=== PATIENT | female | born 1980 | race Caucasian/White ===

== ENCOUNTER 2016-12-13 02:00 | Inpatient (IN) | payer OTHER ==
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
--- NOTE | ~2016-12-13 | PN ---
Unit #: [id number] #: [id number] Patient: JORDAN MARTINI [id number] [facility] [address] [place] [address] [id number] MR#: [id number] NAME: JORDAN MARTINI ROOM: 86 Age: 36 Sex: F Admission Date: 12/13/2016 : 1980 Attending Physician: Nico Carr M.D. Admitting Physician: Nico Carr M.D. Primary Care Physician: Primary Care Physician Sharona DORSEY NOTES DATE OF SERVICE 12/17/2016 DISCUSSION Ms. Martini is a 36-year-old white female with substance abuse and mood disorder who was seen today and chart was reviewed and case was discussed with the staff. She was laying in her bed and was unable to get up and talk to me about symptoms, but was seen to be irritable stating that she wants to know why she is being held at this point and showed very poor insight in her situation and poor motivation towards treatment rather remains with poor prognosis. MENTAL STATUS EXAMINATION Young white female was casually dressed with fair personal hygiene, appears to be in no acute distress or discomfort. She was awake and alert on interaction with intact orientation. Her mood was anxious with congruent affect. She denies any suicidal or homicidal ideations. Her insight and judgement remains slightly impaired. TREATMENT PLAN 1. We will continue her on her current medications and detox protocol. We will monitor her response to the medication and make further adjustments as needed. 2. We will continue to follow up. Dictated by... Lex Carrington/marck TD: 12/17/2016 23:38 JOB #: [id number] Unit #: [id number] #: [id number] Patient: JORDAN MARTINI [facility] PROGRESS NOTES Page 1 of 1 X Nico Carr MD PROGRESS NOTE
--- NOTE | ~2016-12-13 | DS ---
Unit #: [id number] #: [id number] Patient: [facility]ORDAN [facility]ARTINI [id number] [facility] [address] [place] [address] [id number] I MR#: [id number] NAME: JORDAN MARTINI ROOM: P186 Age: 36 Sex: F Admission Date: 12/13/2016 : 1980 Discharge Date: 12/18/2016 Attending Physician: Nico Carr M.D. Primary Care Physician: Primary Care Physician No DISCHARGE SUMMARY IDENTIFYING DATA Ms. Martini is a 36-year-old single white female who is a resident of [place], [place] and was self-referred to the hospital as a transfer from [facility], where she presented with a blood alcohol level of 0.078. DISCHARGE DIAGNOSES Psychiatric: Alcohol dependence, moderate and acute withdrawals; alcohol-induced mood disorder. Medical: Epilepsy. Stressors: Moderate psychosocial stressors. HISTORY OF PRESENT ILLNESS Please see initial psychiatric evaluation for details. PAST PSYCHIATRIC HISTORY Please see initial psychiatric evaluation for details. PAST MEDICAL HISTORY Please see initial psychiatric evaluation for details. HOSPITAL COURSE The patient was admitted to the adult chemical dependency unit at [facility] and was oriented to the hospital environment. Routine p.r.n. medications were initiated, and she was started back on her home medications and alcohol detox protocol was initiated; however, the patient was seen to be showing very inappropriate attitude and poor insight into her situation, no motivation towards treatment, and was constantly more focused about wanting to leave and why she is here and why she is being held. However, alcohol detox protocol was maintained and she was closely monitored and was taking the medications regularly and was tolerating them fairly well and was able to come out of the detox without any complications and was denying any suicidal ideations, intent, or plan and was not seen to be danger to self or anyone else, and as such, it was decided that she will be discharged home and will continue treatment on an outpatient basis. DISCHARGE MEDICATIONS None. DISCHARGE CONDITION Stable. PROGNOSIS Unit #: [id number] #: [id number] Patient: JORDAN MARTINI Fair. Dictated by... Lex Carrington/buck TD: 12/18/2016 07:00 JOB #: [id number] DISCHARGE SUMMARY Page 1 of 1 X Nico Carr MD DISCHARGE SUMMARY
--- NOTE | ~2016-12-13 | PN ---
Unit #: [id number] #: [id number] Patient: JORDAN MARTINI [id number] [facility] [address] [place] [address] [id number] I MR#: [id number] NAME: JORDAN MARTINI ROOM: P178 Age: 36 Sex: F Admission Date: 12/13/2016 : 1980 Attending Physician: Nico Carr M.D. Admitting Physician: Nico Carr M.D. Primary Care Physician: Primary Care Physician Sharona PEARSON PROGRESS NOTES DATE OF SERVICE: 12/14/2016 SUBJECTIVE Ms. Martini is a 36-year-old female who was seen today and chart was reviewed and case was discussed with the staff. She was seen to be anxious, restless, withdrawn, , and she went through detox. Meanwhile, she has been taking the medications and tolerating them fairly well with no reported side effects. MENTAL STATUS EXAMINATION Young white female who was casually dressed with fair personal hygiene, appears to be in . She was awake and alert on interaction with intact orientation. Her mood was anxious with a congruent affect. She denies any suicidal or homicidal ideations. Her insight and judgment remain slightly impaired. TREATMENT PLAN 1. We will continue her on her current treatment protocol. We will monitor her response to the medications and make further adjustments as needed. 2. We will continue to follow up. Dictated by... Lex Carrington/buck TD: 12/16/2016 00:43 JOB #: [id number] [facility] PROGRESS NOTES Page 1 of 1 X Nico Carr MD X PROGRESS NOTE
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
--- NOTE | ~2016-12-13 | PN ---
Unit #: [id number] #: [id number] Patient: JORDAN MARTINI [id number] [facility] [address] [place] [address] [id number] MR#: [id number] NAME: JORDAN MARTINI ROOM: P178 Age: 36 Sex: F Admission Date: 12/13/2016 : 1980 Attending Physician: Nico Carr M.D. Admitting Physician: Nico Carr M.D. Primary Care Physician: Primary Care Physician Sharona PEARSON PROGRESS NOTES DATE OF SERVICE: 12/15/2016 SUBJECTIVE Ms. Martini is a 36-year-old white female with substance abuse and mood disorder, who was seen today and chart was reviewed and case was discussed with the staff. She remained seclusive to herself and has been withdrawn and isolative and not being able to do activities of daily living, still in the detox. Meanwhile, she has been taking the medications and tolerating them fairly well with no reported side effects. MENTAL STATUS EXAMINATION Young white female who was casually dressed with fair personal hygiene, appears to be in no acute distress or discomfort. She was awake and alert on interaction with intact orientation. Her mood was anxious with a congruent affect. She denies any suicidal or homicidal ideations. Her insight and judgment remain slightly impaired. TREATMENT AND PLAN 1. We will continue her on her current medications and treatment protocol. We will monitor her response to the medications and make further adjustments as needed. 2. We will continue to follow up. Dictated by... Lex Carrington/buck TD: 12/16/2016 07:18 JOB #: [id number] [facility] PROGRESS NOTES Page 1 of 1 X Nico Carr MD PROGRESS NOTE
[~2016-12-13 02:00] MED LIST: DILANTIN PO; FLEXERIL10 MG PO; IBUPROFEN800 MG PO; KETOPROFEN PO; LORTAB 5/500 TA1 TA1 PO; PHENERGAN25 MG PO; RONDEC-DM SYRU120 ML PO
[2016-12-14 11:58] LABS: BASOPHIL# 0.1 X10e3 (0-0.3); BASOPHIL% 0.7 % (0-2.5); EOSINOPHIL# 0.2 X10e3 (0-0.7); EOSINOPHIL% 2.6 % (0.0-7.0); HEMATOCRIT 42.9 % (35.0-45.0); HEMOGLOBIN 14.2 gm/dL (12.0-16.0); LYMPHOCYTE# 2.4 X10e3 (1.0-3.5); LYMPHOCYTE% 28.7 % (17.0-45.0); MEAN CELL VOLUME 97.9 FL (83-96); MEAN CORPUSCULAR HEMOGLOBIN 32.4 PG (28-34); MEAN CORPUSCULAR HGB CONC 33.1 g/dL (30-36); MEAN PLATELET VOLUME 9.8 FL (6.5-11.5); MONOCYTE# 0.7 X10e3 (0-1.0); MONOCYTE% 8.9 % (3.0-12.0); NEUTROPHIL# 4.9 X10e3 (1.5-7.1); NEUTROPHIL% 59.1 % (40-75); PLATELET COUNT 186 X10e3 (140-420); RED BLOOD COUNT 4.38 X10e (3.90-5.30); RED CELL DISTRIBUTION WIDTH 15.1 % (11.0-15.5); WHITE BLOOD COUNT 8.2 X10e3 (4.0-10.5)
[2016-12-14 12:02] LABS: DIFF IND NO
[2016-12-14 12:15] LABS: ALBUMIN SERUM 3.3 g/dL (3.5-5.0); BILIRUBIN,TOTAL 0.9 mg/dL (0.2-2.0); CALCIUM SERUM 8.8 mg/dL (8.4-10.2); CREATININE SERUM 0.8 mg/dL (0.6-1.4); GLOM FILT RATE Estimated 94.9 mL/min (>60); POTASSIUM 3.8 mmol/L (3.5-5.1); PROTEIN TOTAL SERUM 6.2 g/dL (6.0-8.3)
== END 2016-12-18 09:36 | disposition home or self-care (01) | DRG 897 ==
LOC: P1E 12:27
PROVIDERS: Psychiatry & Neurology Psychiatry
PROC: HZ2ZZZZ Detoxification Services for Substance Abuse Treatment (ICD-10-PCS; principal; 2016-12-13)
DX: F10.239 Alcohol dependence with withdrawal, unspecified (principal); F10.24 Alcohol dependence with alcohol-induced mood disorder; F17.210 Nicotine dependence, cigarettes, uncomplicated; Z88.2 Allergy status to sulfonamides; Z88.0 Allergy status to penicillin; Z88.8 Allergy status to other drugs, medicaments and biological substances
CPT/HCPCS: 80053; 84703; 85025; 86592